=== PATIENT | male | born 1945 | race Caucasian/White ===

== ENCOUNTER → 2016-10-16 | Outpatient (CLI) | payer BC, OTHER ==
[~2016-10-16] MED LIST: ALTACE10 M1 PO; ALTACE5 MG PO; ATENOLOL 50 MG50 M1 PO; ATENOLOL 50MG T50 M1 PO; ATORVASTATIN CA40 MG PO; CARVEDILOL12.5 MG PO; COLESTIPOL HCL1 G1 PO; COMPAZINE10 M1 PO; GNP HEADACHE P1 EACH PO; LOPRESSOR 50 MG50 M1 PO; MEGA RED PO; MINIPRIN81 MG PO; NITROGLYCERIN0.4 MG SL; OCUVITE TABLET1 EAC1 PO; PERCOCET 5-3251 EACH PO; PLAVIX 75 MG TA75 MG PO; PROAIR HFA8.5 GM INH; SIMVASTATIN40 MG PO; SYMBICORT160 MCG/4. INH; SYMBICORT80 MCG/4.1 INH; TYLENOL P.M. E1 EAC3 PO; ULTRAM 50MG TAB50 MG PO; WELCHOL 625 MG625 MG PO; ZOCOR40 MG PO; ZOFRAN ODT4 MG PO
== END ==
LOC: SLEEPLAB 10-06 08:41
DX: G47.33 Obstructive sleep apnea (adult) (pediatric) (principal)

== ENCOUNTER → 2017-04-08 | Outpatient (CLI) | payer BC, OTHER | LOC: RAD 16:09 | DX: R06.02 Shortness of breath (principal); R09.89 Other specified symptoms and signs involving the circulatory and respiratory systems; R50.9 Fever, unspecified ==

== ENCOUNTER 2018-05-17 06:41 | Outpatient (CLI) | payer BC, OTHER ==
[~2018-05-17] VITALS: Ht 182.9 cm; Wt 108.0 kg
--- NOTE | ~2018-05-17 | EKG ---
[address] [email or web address] [address] ELECTROCARDIOGRAM REPORT Name: LEIZABETH VAUGHAN Room #: [facility]#: [id number] Admission: 05/17/18 Attend Phys: Basim Palmer MD Discharge: Date of : 45 Report #: [id number] THIS REPORT FOR: //name// [facility] Test Date: 2018-05-17 Test Time: 07:24:11 Pat Name: ELIZABETH VAUGHAN Department: Room: Gender: Gold Leaf Gilder: Zeyad LANGE : 1945 Requested By: Basim Palmer Order Number: [id number] MD: Anup Alvarado Measurements Intervals [place] Rate: 63 P: 39 SC: 160 QRS: -15 QRSD: 111 T: 62 QT: 434 QTc: 445 Interpretive Statements Sinus rhythm Borderline left axis deviation Nonspecific ST segment abnormality Compared to ECG 04/12/2014 11:08:14 No significant change was found Electronically Signed On 05-17-2018 8:35:10 MOLD SHOP SUPERVISOR by Anup Alvarado [email or web address] <ELECTRONICALLY SIGNED> By: Anup Alvarado MD, [facility] 05/17/18 0835 D: [id number] 3 Anup Alvarado MD, FAC /EPI
--- NOTE | ~2018-05-17 | EKG ---
[address] [address] ELECTROCARDIOGRAM REPORT Name: ELIZABETH VAUGHAN Room #: 219-[facility]#: [id number] Admission: 05/17/18 Attend Phys: Basim Palmer MD Discharge: Date of : 45 Report #: [id number] THIS REPORT FOR: //name// [facility] Test Date: 2018-05-18 Test Time: 06:53:55 Pat Name: ELIZABETH VAUGHAN Department: Room: 219 P Gender: M Partition Notcher: ZAHIDA : 1945 Requested By: Basim Palmer Order Number: [id number] MD: Anup Alvarado Measurements Intervals [place] Rate: 63 P: 35 NC: 174 QRS: -35 QRSD: 107 T: 81 QT: 433 QTc: 444 Interpretive Statements Sinus rhythm Left axis deviation Nonspecific ST and T wave abnormality Compared to ECG 05/17/2018 10:13:40 No significant change was found Electronically Signed On 05-18-2018 8:01:32 POST CLOSER by Anup Alvarado [email or web address] <ELECTRONICALLY SIGNED> By: Anup Alvarado MD, [facility] 05/18/18 0801 0653 0653 Anup Alvarado MD, [facility] /EPI
--- NOTE | ~2018-05-17 | CATHLAB ---
[facility] [place] [address] INVASIVE PROCEDURE REPORT Name: ELIZABETH VAUGHAN Room #: 219-[facility]#: [id number] Admission: 05/17/18 Attend Phys: Bsaim Palmer MD Discharge: Date of : 45 Date of Service: 05/17/18 1346 Report #: [id number] THIS REPORT FOR: //name// APPROVED REPORT Study performed: 05/17/2018 07:41:45 Patient Details Patient Status: Out-Patient Room #: The patient is a 73 year-old male Event Personnel Basim Palmer News Technical Director, Betty Mccallum RTR, STRUCTURAL STEEL IRONWORKER Monitor, Lars Echavarria RN RN, Sydni Michele Scrbradford Procedures Performed Art Access - R femoral artery* Left Heart Cath w/or w/o Coronaries [id number] [facility] [address]359 Initial Mod Sed Same Phys/QHP Gr5y 429889 85175 Mod Sed Same Phys/QHP Ea 647667 ARACELI Place w/wo Plasty Single PDA 841516 Hemostasis w/ Mynx Indication Dyspnea, Positive stress test, Chest pain Risk Factors Chronic Lung DiseaseHypercholesterolemia, Coronary Artery DiseaseHypertension Procedure Narrative The Right Groin^ was infiltrated with 1% Lidocaine subcutaneous anesthesia. A PINNACLE 4FR Sheath #[id number] sheath was inserted into the RFA^. Coronary angiography was performed using coronary diagnostic catheters. The right coronary system was accessed and visualized with a JR4 catheter. The left coronary system was accessed and visualized with a JL5 catheter. The left ventricle was accessed and visualized with a ANGLED PIGTAIL catheter. Left ventricular/Aortic Valve gradient assessed via catheter pullback. Left ventriculogram was performed in 30 degree projection. Pre-demployment femoral angiogram was performed . Closure device was deployed with a 6 Fr MYNXGRIP 6/7F #[id number]. The patient tolerated the procedure well and there were no complications associated with the procedure. There was no hematoma. Intraoperative Conscious Sedation Sedation start time: 08:44 Case end Time: [facility] [address] [place] [address] INVASIVE PROCEDURE REPORT Name: ELIZABETH VAUGHAN Room #: 219-P [facility]#: [id number] Admission: 05/17/18 Attend Phys: Basim Palmer MD Discharge: Date of : 45 Date of Service: 05/17/18 1346 Report #: [id number] 09:43 Fentanyl 50 mcg Versed 1 mg Fluoro Time: 12.47 minutes Dose: DAP 91429.20 cGycm2 1980 mGy Contrast Type and Amount: Omnipaque 180 ml Coronary Angiography The patient's coronary anatomy is right dominant. Diagnostic Cath Left Main Patent vessel, with no flow-limiting lesions. LAD Moderate size caliber vessel, traveling down the anterior wall and terminating at the apex. There is mild disease in the proximal segment, 20%. There is a stent in the midsegment of the LAD, patent with mild restenosis. Diagonal 1 Moderate size caliber vessel, with mild disease proximally, 20%. Circumflex Moderate size caliber vessel, with mild disease proximally, 20%. OM1 Patent vessel, with no flow-limiting lesions. OM2 Small-caliber vessel, with mild to moderate disease proximally, 40%. Right Coronary Dominant vessel with a patent stent in the proximal segment with mild restenosis, 20%. The distal segment is ectatic with "to-and-fro" flow. R PDA Severe stenosis in the ostial/proximal segment, 95%. RPLV Moderate size caliber vessel, patent with mild disease proximally. Left Ventriculography The left ventricle is normal in size with normal contractility. The left ventricular ejection fraction is estimated to be 55-60%. Left ventricular wall motion abnormalities are not present. Hemodynamics The aortic pressure is 123/69 mmHg with a mean of 90 mmHg. The left ventricular pressure is 139/5 mmHg with a mean of mmHg. The left ventricular end diastolic pressure is 16 mmHg. PCI Technique Lesion Percutaneous coronary intervention was performed on the right posterior descending artery. The lesion stenosis prior to intervention was 95% with JOSE 3 flow. A VISTA 6FR JR 4 #[id number] [place] [address] INVASIVE PROCEDURE REPORT Name: ELIZABETH VAUGHAN Room #: 219-P [facility].#: [id number] Admission: 05/17/18 Attend Phys: Basim Palmer MD Discharge: Date of : 45 Date of Service: 05/17/18 1346 Report #: [id number] Catheter was used to engage the ostium. A Luge Wire .014 x 182CM #[id number] Interventional Guidewire was used to cross the lesion. BALLOON DILATION A Balloon catheter Euphora RX 2.0 x12 #[id number] was inserted and inflated up to 6.00atm for 13seconds. Additional Inflation: 12.00atm for 25seconds. STENT DEPLOYMENT A stent XIENCE SANDRA RX 2.25 X 15 #[id number] was inserted and inflated up to 10.00atm for 20seconds. POST STENT DEPLOYMENT BALLOON DILATION A Balloon catheter TREK NC RX 2.25 X 12 #[id number] was inserted and inflated up to 18.00atm for 14seconds. Final angiography reveals 0 % stenosis with JOSE 3 flow. Conclusion 1. Successful insertion of a drug-eluting stent into the ostial/proximal PDA. 2. Patent stents in the LAD and RCA. 3. Normal LV systolic function. 4. Recommend dual antiplatelet therapy and risk factor management. <ELECTRONICALLY SIGNED> By: Basim Palmer MD 05/17/18 1346 45 134 Basim Palmer MD /INF
--- NOTE | ~2018-05-17 | D ---
[facility] [place] [address] DISCHARGE SUMMARY Name: ELIZABETH VAUGHAN Room #: DEP [facility] [place]#: [id number] Admission: 05/17/18 Attend Phys: Basim Palmer MD Discharge: 05/18/18 Date of : 45 Report #: [id number] THIS REPORT FOR: //name// CC: Basim Palmer Maurice Lim DATE OF SERVICE: 05/18/2018 FINAL DIAGNOSES: 1. Unstable angina, status post coronary angioplasty. 2. Prior history of coronary artery disease with stent placement. 3. Paroxysmal atrial fibrillation. 4. Chronic obstructive pulmonary disease. 5. Sarcoidosis. 6. Hypertension. 7. Edema. 8. Hypercholesterolemia. HOSPITAL COURSE: Please see the original H and P for full details. The patient presented with unstable angina and abnormal nuclear stress test. He presented for elective cardiac catheterization. The stents in the mid LAD and proximal RCA were patent. There was a severe occlusion in the ostium/proximal segment of the PDA. He underwent angioplasty with placement of one drug-eluting stent. He has remained stable overnight. FINAL DISPOSITION: He will continue Altace 5 mg daily, Lipitor 40 mg, Coreg 12.5 mg twice a day, inhalers, Dyazide once a day. In addition, he would resume low-dose aspirin 81 mg daily, Plavix 75 mg daily. He will also resume Xarelto. He is given instructions for followup in a few weeks. <ELECTRONICALLY SIGNED> By: Basim Palmer MD 05/19/18 0813 0824 1149 Basim Palmer MD /nt
--- NOTE | ~2018-05-17 | EKG ---
[place] [address] [facility] [facility] [place] [address] ELECTROCARDIOGRAM REPORT Name: ELIZABETH VAUGHAN Room #: 219-P [facility]#: [id number] Admission: 05/17/18 Attend Phys: Basim Palmer MD Discharge: Date of : 45 Report #: [id number] THIS REPORT FOR: //name// [facility] Test Date: 2018-05-17 Test Time: 10:13:40 Pat Name: ELIZABETH VAUGHAN Department: Room: Gender: [facility] Rehabilitation Director: Zeyad LANGE : 1945 Requested By: Basim Palmer Order Number: [id number] MD: Denzel Ugarte Measurements Intervals [place] Rate: 66 P: 54 NV: 173 QRS: -38 QRSD: 110 T: 70 QT: 434 QTc: 455 Interpretive Statements Sinus rhythm Left axis deviation Low voltage in the limb leads Nonspecific ST-T wave changes Compared to ECG 05/17/2018 07:24:11 No significant changes Electronically Signed On 05-17-2018 12:21:24 GERIATRIC PERSONAL CARE AIDE by Denzel Ugarte [email or web address] <ELECTRONICALLY SIGNED> By: Denzel Ugarte MD 05/17/18 1221 1013 1013 Denzel Ugarte MD /EPI
[2018-05-17 07:07] VITALS: BP 138/69
[2018-05-17 07:15] LABS: HEMATOCRIT 40.3 % (42.0-52.0); MCH 30.7 pg (26.0-34.0); MCHC 34.8 g/dL (28.0-37.0); MCV 88.1 fL (80.0-100.0); RBC 4.57 mil/uL (4.50-6.00); RDW 13.7 % (10.5-14.5)
[2018-05-17] MEDS ORDERED: DYAZIDE 37.5-21 EACH PO (07:21)
[2018-05-17] MEDS ORDERED: SPIRIVA INH (07:22)
[2018-05-17 07:24] LABS: CALCIUM 9.5 mg/dL (8.5-10.1); POTASSIUM 3.7 mmol/L (3.5-5.1)
[2018-05-17] MEDS ORDERED: ALBUTEROL2.5 MG/31 INH (07:24)
[2018-05-17 20:54] VITALS: BP 123/69
[2018-05-18 04:05] LABS: HEMATOCRIT 35.2 % (42.0-52.0); HEMOGLOBIN 12.4 gm/dL (14.0-18.0); MCH 31.4 pg (26.0-34.0); MCHC 35.4 g/dL (28.0-37.0); MCV 88.7 fL (80.0-100.0); RBC 3.97 mil/uL (4.50-6.00); RDW 13.4 % (10.5-14.5); WBC 8.8 thou/uL (4.0-11.0)
[2018-05-18 04:21] LABS: ALBUMIN 3.3 g/dL (3.4-5.0); CALCIUM 8.6 mg/dL (8.5-10.1); CREATININE 0.8 mg/dL (0.7-1.3); POTASSIUM 3.8 mmol/L (3.5-5.1); TOTAL BILIRUBIN 1.1 mg/dL (<0.1-1.0); TOTAL PROTEIN 6.1 g/dL (6.4-8.2); TROPONIN-I 0.1 ng/mL (<0.06)
[2018-05-18 05:04] VITALS: BP 114/63
[2018-05-18 07:16] VITALS: BP 136/62
[2018-05-18] MEDS ORDERED: CLOPIDOGREL75 MG PO (08:16)
[2018-05-18] MEDS ORDERED: ASPIRIN325 PO (08:17)
[2018-05-18 10:36] VITALS: BP 136/62
== END 2018-05-18 11:30 | disposition home or self-care (01) ==
LOC: 2N 06:41 → CATH 06:41 → 2N 11:39 → CATH 11:50 → ENTRNSPT 05-18 11:04 → EDTRNSPTSTS 05-18 11:19 → CATH 05-18 11:30
PROVIDERS: Internal Medicine Cardiovascular Disease
DX: I25.10 Atherosclerotic heart disease of native coronary artery without angina pectoris (principal); I10 Essential (primary) hypertension; E78.5 Hyperlipidemia, unspecified; I48.91 Unspecified atrial fibrillation; I25.2 Old myocardial infarction; K21.9 Gastro-esophageal reflux disease without esophagitis; J44.9 Chronic obstructive pulmonary disease, unspecified; Z82.49 Family history of ischemic heart disease and other diseases of the circulatory system; Z95.5 Presence of coronary angioplasty implant and graft; Z90.49 Acquired absence of other specified parts of digestive tract; Z79.01 Long term (current) use of anticoagulants; Z98.890 Other specified postprocedural states; Z79.899 Other long term (current) drug therapy; Z88.8 Allergy status to other drugs, medicaments and biological substances; Z79.82 Long term (current) use of aspirin
CPT/HCPCS: 10081